=== PATIENT | female | born 2000 | race African-American/Black ===

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

== ENCOUNTER 2020-09-11 08:24 | Emergency (ER) | payer OTHER ==
[~2020-09-11] VITALS: Ht 167.6 cm; Wt 100.0 kg
[~2020-09-11 08:24] MED LIST changes: -XOPENEX
[2020-09-11] MEDS ORDERED: ONDANSETRON HCL 4MG/2ML INJ IV STA (08:51)
[2020-09-11] MEDS ORDERED: KETOROLAC 30MG/ML VIAL IV STA (08:51)
[2020-09-11] MEDS ORDERED: SODIUM CHLORIDE 0.9% 1,000 ML IV ONE (09:00)
[2020-09-11 09:52] LABS: BASOPHILS % 0.7 % (0.0-2.0); EOSINOPHILS % 6.4 % (0.0-5.0); HEMATOCRIT. 37.1 % (36.0-48.0); HEMOGLOBIN. 12.5 g/dL (12.0-16.0); LYMPHOCYTES % 20.1 % (20.0-50.0); MEAN CORPUSCULAR VOLUME 86.3 fL (81.0-99.0); MEAN PLATELET VOLUME 8.2 fl (7.4-10.4); MONOCYTES % 8.2 % (2.0-8.0); NEUTROPHILS % 64.6 % (40.0-76.0); PLATELET 302 x1000/uL (130-400); RED CELL DISTRIBUTION WIDTH 14.1 % (11.6-14.6)
[2020-09-11 09:57] LABS: CHLORIDE 107 mEq/L (98-107)
[2020-09-11 10:01] LABS: HCG SCREEN NEGATIVE
[2020-09-11 10:02] LABS: CLARITY URINE CLEAR (CLEAR); COLOR URINE YELLOW (YELLOW); KETONES URINE 1+ (NEGATIVE); LEUKOCYTE ESTERASE URINE TRACE (NEGATIVE); NITRITE URINE NEGATIVE (NEGATIVE); OCCULT BLOOD URINE TRACE (NEGATIVE); PROTEIN URINE NEGATIVE (NEGATIVE); SPECIFIC GRAVITY URINE 1.019 (1.005-1.030); UROBILINOGEN URINE 0.2 E.U./dL (0.2-1.0)
[2020-09-11] MEDS ORDERED: IBUPROFEN 600MG TABLET PO ONE (11:30)
[2020-09-11 12:00] VITALS: BP 123/69
== END 2020-09-11 12:30 | disposition home or self-care (01) ==
LOC: ER 08:24
DX: K80.50 Calculus of bile duct without cholangitis or cholecystitis without obstruction (principal)
CPT/HCPCS: 36415; 76705; 80053; 81003; 83690; 84703; 85025; 93005; 96361; 96374; 96375; 99285; J1885; J2405; J7030; Z7610